=== PATIENT | male | born 1975 | race Caucasian/White ===

== ENCOUNTER → 2017-02-26 | Outpatient (CLI) | payer OTHER ==
--- NOTE | 2017-02-26 14:48 | Diagnostic Imaging Report ---
Indication: PAIN, hepatitis C Technique: Del Real-scale and duplex images of the upper abdomen were obtained Comparison: 02/22/2016 Findings: . Gallbladder demonstrates small stones. Is nondistended. There is no wall thickening. Sonographic Silverman's sign is negative. Common bile duct measures 6 mm in diameter. No intrahepatic biliary ductal dilatation. Liver demonstrates normal echogenicity, no focal abnormality. No surface micro-nodularity. Portal vein and hepatic veins are patent.. Pancreas is unremarkable. Spleen is unremarkable. Left kidney measures 13.1 cm in length. Right kidney measures 13 cm length. Both kidneys demonstrate normal echogenicity. There is no hydronephrosis. There is a 3.6 cm right upper pole renal cyst. . Non-aneurysmal abdominal aorta. Impression: Normal liver. No evidence of cirrhosis or focal abnormality Cholelithiasis, also previously described Right renal cyst incidentally noted, previously described
== END | disposition home or self-care (01) ==
LOC: ULS 10:10
DX: B19.20 Unspecified viral hepatitis C without hepatic coma (principal); K80.20 Calculus of gallbladder without cholecystitis without obstruction; N28.1 Cyst of kidney, acquired
CPT/HCPCS: 76700

== ENCOUNTER 2018-02-26 10:07 | Outpatient (CLI) | payer OTHER ==
--- NOTE | 2018-02-26 14:53 | Diagnostic Imaging Report ---
Indication: Hepatitis C Technique: Del Real-scale and duplex images of the upper abdomen were obtained Comparison: 02/26/2017 Findings: Gallbladder demonstrates gallstones. No gallbladder wall thickening or pericholecystic fluid. Sonographic Silverman's sign is negative. Common bile duct measures 5 mm in diameter. No intrahepatic biliary ductal dilatation. Liver demonstrates normal echogenicity, no focal abnormality. Portal vein and hepatic veins are patent. Pancreas is unremarkable. Spleen is unremarkable. Left kidney measures 13.6 cm in length. Right kidney measures 12.6 cm length. Both kidneys demonstrate normal echogenicity. There is no hydronephrosis. No focal abnormality . Abdominal aorta is partially obscured by bowel gas, visualized portions are non-aneurysmal . Impression: Cholelithiasis also previously described cholelithiasis. Negative for dilated ducts No other acute or significant abnormality. Note nonvisualization of portions of the abdominal aorta
== END 2018-02-26 12:07 | disposition home or self-care (01) ==
LOC: ULS 10:07
DX: K80.20 Calculus of gallbladder without cholecystitis without obstruction (principal)
CPT/HCPCS: 76700

== ENCOUNTER → 2020-04-29 | Outpatient (CLI) | payer OTHER ==
--- NOTE | 2020-04-29 16:05 | Diagnostic Imaging Report ---
EXAM: ULTRASOUND US ABD Complete CLINICAL HISTORY: Abdominal pain. COMPARISON: None TECHNIQUE: Ultrasound examination of the abdomen includes grayscale images, and color and spectral doppler analysis. FINDINGS: The liver is enlarged but homogeneous. No ductal dilatation noted. The gallbladder is without sludge or stone. Common bile duct measures 5 mm. The pancreas is unremarkable to the extent visualized. There is a septated cyst upper pole right kidney. No hydronephrosis seen bilaterally. Aorta and cava are mostly obscured by bowel gas. IMPRESSION: HEPATOMEGALY. SEPTATED CYST UPPER POLE RIGHT KIDNEY.
== END | disposition home or self-care (01) ==
LOC: ULS 14:31
DX: R10.9 Unspecified abdominal pain (principal); N28.1 Cyst of kidney, acquired; R16.0 Hepatomegaly, not elsewhere classified
CPT/HCPCS: 76700